=== PATIENT | male | born 2000 | race Caucasian/White ===

== ENCOUNTER 2022-05-07 13:35 | Outpatient (CLI) | payer BC, SELFPAY ==
--- NOTE | 2022-05-07 14:03 | XR_ITS ---
WS: [id number] XR shoulder LT min 2V* [id number] REASON FOR EXAM: left shoulder pain FINDINGS: Acromioclavicular and glenohumeral joints are intact and well preserved. No fracture or other focal bone lesion. No soft tissue abnormality. XR/XR shoulder LT min 2V* [id number] IMPRESSION: No significant abnormality.
== END 2022-05-07 13:36 | disposition home or self-care (01) ==
PROVIDERS: PCP Family Medicine; Visit Provider Clinical Nurse Specialist Adult Health
DX: M25.512 Pain in left shoulder (principal)
CPT/HCPCS: 73030

== ENCOUNTER 2024-11-25 15:06 | Outpatient (CLI) | payer OTHER, SELFPAY ==
--- NOTE | 2024-11-25 15:17 | XR_ITS ---
WS: [id number] Right knee, 3 views, 11/25/2024 Clinical Data: chronic right knee pain Comparison: Right leg, 03/12/2017 Findings: No fractures or dislocations are seen. The joint spaces are normal. The patella is intact. The soft tissues are unremarkable. The proximal portion of the long intramedullary west in the tibia is visible. XR/XR knee RT 3V* [id number] Impression: Negative right knee.
== END 2024-11-25 15:07 | disposition home or self-care (01) ==
PROVIDERS: PCP Family Medicine; Visit Provider Family Medicine
DX: M25.561 Pain in right knee (principal); G89.29 Other chronic pain
CPT/HCPCS: 73562